=== PATIENT | female | born 1945 | race Caucasian/White ===

== ENCOUNTER → 2016-11-25 | Outpatient (CLI) | payer OTHER ==
[2014-11-21 12:50] VITALS: BP 144/70; PULSE 69
[~2016-11-25] MED LIST: ADVIN25/60 INH; ALEN70TA4 PO; ASPI81TA28 PO; CALC600T9; IPRA1AER2 INH; LEVO50TA PO; LOSA1TAB38 PO; POTA10CA28 PO; PRLSR20 PO; SIMV80TA2 PO; STRESS
[2016-11-25 12:47] VITALS: BP 151/82; PULSE 71; TEMP 36.8; O2SAT 99
--- NOTE | 2016-11-25 14:16 | Radiation Oncology Follow-Up ---
Radiation Oncology Follow-Up Date of Visit Nov 25, 2016. Reason For Visit Annual follow-up Radiation Completion Date 04/21/14 Diagnosis (1) Breast cancer Status: Resolved Onset Date: 08/17/2013 Histology Subtype: ductal Stage: ll (B) Permanent Comment: Abnormal left breast mammogram Status post biopsy revealing infiltrating ductal carcinoma Status post partial mastectomy and sentinel lymph node biopsy Stage pT2 pN1a Estrogen receptor negative, progesterone receptor negative, HER-2/abimael negative Status post completion of systemic chemotherapy Status post completion of radiation therapy 04/21/2014 received 6120 cGy Episode of radiation recall July 2015 Last Edited By: Coby Butterfield on Nov 25, 2016 14:15 Interim History She has been doing well over this past year. She denies any changes to her breast. She is noted no masses or tenderness no change of the axilla. There is no swelling of her arm. In July 2015 she had episode a radiation recall. She has had no further recurrence of radiation recall. She is up-to- date on mammography. She had a mammogram 08/26/2016. Left breast showed status post previous radiation therapy and lumpectomy. Benign, no evidence of malignancy. Normal interval follow-up in 12 months. Right breast was negative , no evidence of malignancy. Normal interval follow-up is recommended in 12 months. BI-RADS Category 2. Allergies Coded Allergies: No Known Allergies (Unverified , 09/08/13) Home Medications Scheduled Alendronate Sodium (Fosamax), 70 MG PO WK Aspirin (Aspirin Ec), 81 MG PO DAILY Calcium Carbonate-Vitamin D (Calcium + D), DAILY Fluticasone Prop/Salmeterol (Advair Diskus 250/50 60 Dose), 1 PUFFS INH BID Ipratropium-Albuterol (Combivent Respimat), 2 PUFFS INH qidprpn Levothyroxine Sodium (Synthroid), 50 MCG PO DAILY Losartan Potassium (Cozaar), 100 MG PO DAILY Omeprazole (Prilosec), 20 MG PO DAILY Potassium Chloride (Micro-K Ext Rel), 10 MEQ PO DAILY Simvastatin (Zocor), 80 MG PO QPM [stress tab], 1 TAB DAILY Review of Systems Gastrointestinal: Symptoms: WNL Oral: Symptoms: No Problems Respiratory: Symptoms: WNL Respiratory Comments: SHORT - patient has COPD Urinary: Symptoms: WNL Skin: Symptoms: No Problems Breast: Right Upper Arm Measurement: 35.4 Right Mid Arm Measurement: 25.7 Right Wrist Measurement: 15.0 Left Upper Arm Measurement: 37.5 Left Mid Arm Measurement: 27.7 Left Wrist Measurement: 15.1 Arm Dominence: Left Physical Exam Vital Signs Date Time Temp Pulse Resp B/P Pulse Ox O2 Delivery O2 Flow Rate FiO2 11/25/16 12:47 36.8 71 16 151/82 99 Pain: Pain Location: None Patient Pain Scale: 0 - 10 Initial Pain Intensity: 0.0 Fatigue: None General Appearance: no apparent distress Eyes: normal inspection, EOMI ENT: normal ENT inspection, hearing grossly normal Neck: no adenopathy Respiratory/Chest: lungs clear, no respiratory distress, no accessory muscle use Breast: Breast examination reveals well-healed incisions of the left breast. There are no masses or tenderness no changes of the axilla. She does have some mild edema. There is no erythema. There is no telangiectasis. Using the [place] score cosmesis she has a good outcome. The right breast showed no masses or tenderness and no axillary adenopathy. Cardiovascular: regular rate, rhythm, no gallop, no murmur Extremities: no pedal edema Neurologic/Psychiatric: no motor/sensory deficits, alert, normal mood/affect Skin: warm/dry Lymphatic: no adenopathy Additional Studies Mammography as reviewed above. Assessment & Plan Plan: Continue annual mammography. Continue regular follow-up with Dr. Bangura, Dr. Newman, and her PCP. We asked her to return to our office in 1 year. She may call if she has any questions or concerns in the interim. Total Time In Follow-Up I spent 20 minutes speaking to the patient performing examination. I spent 15 minutes reviewing information in completing this note. Copy To Eloina Bangura MD; Terra Love M.D.; Cipriano Newman M.D. Problem Qualifiers (1) Breast cancer: Breast location: upper outer quadrant of breast Laterality: left
== END | disposition home or self-care (01) ==
LOC: C.ONC 12:40
PROVIDERS: ATTEND Physician Assistant Medical
DX: Z08 Encounter for follow-up examination after completed treatment for malignant neoplasm (principal); Z92.3 Personal history of irradiation; Z85.3 Personal history of malignant neoplasm of breast

== ENCOUNTER → 2017-01-09 | Outpatient (CLI) | payer OTHER ==
[2017-01-09 13:10] LABS: BASO % 0.4 %; BASO ABS # 0.02 K/uL (0-0.2); COMPLETE YES; EOS % 8.6 %; HEMATOCRIT 41.4 % (37-47); IG% 0.2 %; LYMPH % 29.4 %; LYMPH ABS # 1.33 K/uL (1.2-3.4); MEAN CELL VOLUME 94.3 fL (80-100); MEAN CORPUSCULAR HGB CONC 32.9 g/dl (32-36); MEAN PLATELET VOLUME 9.6 fL (7.4-10.4); MONO % 8.8 %; NEUT % 52.6 %; PLATELET COUNT 207 K/uL (130-400); RED BLOOD COUNT 4.39 M/uL (4.2-5.4); WHITE BLOOD COUNT 4.52 K/uL (4.8-10.8)
[2017-01-09 13:24] LABS: ALT/SGPT 21 U/L (12-78); AST/SGOT 16 U/L (15-37); BLOOD UREA NITROGEN 9 mg/dl (7-18); BUN/CREATININE RATIO 14.5 (10-20); CARBON DIOXIDE 30 mmol/L (21-32); CHLORIDE 106 mmol/L (98-107); CHOLESTEROL 147 mg/dl (0-200); CREATININE 0.65 mg/dl (0.60-1.20); GLUCOSE 93 mg/dl (70-99); POTASSIUM 3.8 mmol/L (3.5-5.1); SODIUM 143 mmol/L (136-145); TRIGLYCERIDES 56 mg/dl (0-150); VERY LOW DENSITY LIPOPROT CALC 11 mg/dl
[2017-01-09 13:25] LABS: CALCIUM 9.5 mg/dl (8.5-10.1)
[2017-01-09 13:34] LABS: ALB/GLOB RATIO 1.2 (0.9-2); ALKALINE PHOSPHATASE 48 U/L (45-117); CHOLESTEROL/HDL RATIO 2.1; HDL CHOLESTEROL 71 mg/dl; LDL CHOLESTEROL CALCULATED 65 mg/dl
== END | disposition home or self-care (01) ==
LOC: C.LABMFLN 07:27
PROVIDERS: ATTEND Family Medicine
DX: I10 Essential (primary) hypertension (principal); E78.00 Pure hypercholesterolemia, unspecified; E03.9 Hypothyroidism, unspecified

== ENCOUNTER → 2017-11-24 | Outpatient (CLI) | payer OTHER ==
[2017-11-24 12:57] VITALS: BP 137/83; PULSE 71; TEMP 36.6; O2SAT 98
--- NOTE | 2017-11-24 14:43 | Radiation Oncology Follow-Up ---
Radiation Oncology Follow-Up Date of Visit Nov 24, 2017. Reason For Visit Annual follow-up Radiation Completion Date 04/21/14 Diagnosis (1) Breast cancer Status: Resolved Onset Date: 08/17/2013 Histology Subtype: Ductal Stage: ll (B) Permanent Comment: Abnormal left breast mammogram Status post biopsy revealing infiltrating ductal carcinoma Status post partial mastectomy and sentinel lymph node biopsy Stage pT2 pN1a Estrogen receptor negative, progesterone receptor negative, HER-2/abimael negative Status post completion of systemic chemotherapy Status post completion of radiation therapy 04/21/2014 received 6120 cGy Episode of radiation recall July 2015 Last Edited By: Coby Butterfield on Nov 25, 2016 14:15 Interim History She has been doing well over this past year. She denies any changes to the breast. She has noted no masses or tenderness no change in the axilla. She has had no swelling of her arm. She does have some difficulty with stretching her left arm up over her head. She does not have decreased range of motion but she has a tightness along the midaxillary line which continues up towards the axilla. Because of that she has difficulty with reaching up to get things off top shelves. She has been doing things to try to increase strength in her arms with some light weightlifting. She has no complaints of any recurrence of radiation recall. She has noticed no swelling in her arm. She is up-to-date on mammography. Allergies Coded Allergies: No Known Allergies (Unverified , 09/08/13) Home Medications Scheduled Aspirin (Aspirin Ec), 81 MG PO DAILY Calcium Carbonate-Vitamin D (Calcium + D), DAILY Fluticasone Prop/Salmeterol (Advair Diskus 250/50 60 Dose), 1 PUFFS INH BID Ipratropium-Albuterol (Combivent Respimat), 2 PUFFS INH qidprpn Levothyroxine Sodium (Synthroid), 50 MCG PO DAILY Losartan Potassium (Cozaar), 100 MG PO DAILY Omeprazole (Prilosec), 20 MG PO DAILY Potassium Chloride (Micro-K Ext Rel), 10 MEQ PO DAILY Simvastatin (Zocor), 80 MG PO QPM [stress tab], 1 TAB DAILY Review of Systems Gastrointestinal: Symptoms: WNL Oral: Symptoms: No Problems Respiratory: Symptoms: WNL Other Respiratory: SHORT - COPD flares from time to time Urinary: Symptoms: WNL Skin: Symptoms: No Problems Breast: Right Upper Arm Measurement: 36.9 Right Mid Arm Measurement: 26.1 Right Wrist Measurement: 15.3 Left Upper Arm Measurement: 38.2 Left Mid Arm Measurement: 27.8 Left Wrist Measurement: 15.2 Arm Dominence: Left Physical Exam Vital Signs Date Time Temp Pulse Resp B/P (MAP) Pulse Ox O2 Delivery O2 Flow Rate FiO2 11/24/17 12:57 36.6 71 18 137/83 98 Fatigue: None General Appearance: no apparent distress Eyes: normal inspection, EOMI ENT: normal ENT inspection, hearing grossly normal Neck: no adenopathy, thyroid normal Respiratory/Chest: no respiratory distress, no accessory muscle use, + wheezing Breast: Breast examination reveals well-healed incisions on the left breast. There are no masses or tenderness and no axillary adenopathy. She has no skin retractions or nipple changes. There is mild edema in the lower central portion of the breast. There is no tenderness of the midaxillary line. There is no decreased range of motion of the shoulder. Using the [place] score cosmesis she has a good outcome. The right breast showed no masses or tenderness no axillary adenopathy. Cardiovascular: regular rate, rhythm, no gallop, no murmur Extremities: non-tender, normal inspection, no pedal edema Neurologic/Psychiatric: no motor/sensory deficits, alert, normal mood/affect Skin: warm/dry Pain Management Patient Reports Pain: No Pain Management Plan She denies pain therefore requires no pain management. Laboratory Laboratory Results: not applicable Pathology Pathology Results: not applicable Imaging Imaging Studies: were reviewed, and pertinent findings noted below Imaging Comments She had a bilateral mammogram August 26, 2017. This showed no evidence of malignancy. This was benign bilaterally. Repeat in 12 months. BI-RADS Category 2. Assessment & Plan Plan: Continue with scheduled mammography. Continue regular follow-up with her primary care physician, Dr. Newman in medical oncology and Dr. Bangura. We asked her to return to our office in 1 year. She may call if she has any questions or concerns in the interim. Total Time In Follow-Up I spent 20 minutes speaking to the patient and performing examination. I spent 15 minutes reviewing information incompleteness note. Copy To Eloina Bangura MD; Terra Love M.D.; Cipriano Newman M.D.
== END | disposition home or self-care (01) ==
LOC: C.ONC 12:35
PROVIDERS: ATTEND Physician Assistant Medical
DX: Z08 Encounter for follow-up examination after completed treatment for malignant neoplasm (principal); Z92.3 Personal history of irradiation; Z86.000 Personal history of in-situ neoplasm of breast

== ENCOUNTER → 2017-12-04 | Outpatient (CLI) | payer OTHER ==
[~2017-12-04] MED LIST changes: -ALEN70TA4 PO
[2017-12-04 12:16] LABS: BASO % 0.4 %; BASO ABS # 0.02 K/uL (0-0.2); EOS % 9.5 %; EOS ABS # 0.44 K/uL (0-0.5); HEMATOCRIT 41.2 % (37-47); HEMOGLOBIN 13.5 g/dL (12.0-16.0); IG# 0.01 K/uL (0.00-0.02); LYMPH ABS # 1.53 K/uL (1.2-3.4); MEAN CELL VOLUME 93.6 fL (80-100); MEAN CORPUSCULAR HEMOGLOBIN 30.7 pg (25-34); MEAN CORPUSCULAR HGB CONC 32.8 g/dl (32-36); MEAN PLATELET VOLUME 9.8 fL (7.4-10.4); MONO % 8.4 %; MONO ABS # 0.39 K/uL (0.11-0.59); NEUT % 48.5 %; NEUT ABS # 2.24 K/uL (1.4-6.5); PLATELET COUNT 218 K/uL (130-400); RED CELL DISTRIBUTION WIDTH SD 44.7 fL (36.4-46.3); WHITE BLOOD COUNT 4.63 K/uL (4.8-10.8)
[2017-12-04 13:15] LABS: ALBUMIN 3.5 gm/dl (3.4-5.0); ALT/SGPT 25 U/L (12-78); BLOOD UREA NITROGEN 6 mg/dl (7-18); CALCIUM 9.4 mg/dl (8.5-10.1); CARBON DIOXIDE 30 mmol/L (21-32); CHOLESTEROL 145 mg/dl (0-200); GLUCOSE 86 mg/dl (70-99); POTASSIUM 3.6 mmol/L (3.5-5.1); SODIUM 140 mmol/L (136-145)
[2017-12-04 13:24] LABS: ALKALINE PHOSPHATASE 52 U/L (45-117); AST/SGOT 16 U/L (15-37); LDL CHOLESTEROL CALCULATED 72 mg/dl; TOTAL PROTEIN 6.7 gm/dl (6.4-8.2)
== END | disposition home or self-care (01) ==
LOC: C.LABMFLN 07:12
PROVIDERS: ATTEND Family Medicine
DX: I10 Essential (primary) hypertension (principal); E78.00 Pure hypercholesterolemia, unspecified; E03.9 Hypothyroidism, unspecified